=== PATIENT | male | born 1990 | race Hispanic/Latino ===

== ENCOUNTER 2017-10-20 20:20 | Emergency (ER) | payer SELFPAY ==
[2017-10-20 22:03] LABS: Bilirubin Negative (Negative); Blood, Urine Negative (Negative); Clarity CLEAR (Clear); Glucose, Urine (Dipstick) Negative (Negative); Leukocyte Negative (Negative); Nitrite Negative (Negative); Protein, Urine (Dipstick) Negative (Neg-Trace); Specific Gravity, Urine 1.006 (1.002-1.036); Urobilinogen 0.2 mg/dL (0.2-1.0)
[2017-10-20 22:07] LABS: Bacteria/HPF None Seen HPF (None Seen); Hyaline Casts/LPF 0-3 HYALINE CAST LPF (0-3 Hyaline); RBC/HPF 0-3 HPF (0-3); Squamous Epithelial 0-3 HPF (0-3); WBC/HPF 0-3 HPF (0-3)
[2017-10-20] MEDS ORDERED: cefTRIAXone\\ROCEPHIN 250 MG VIAL ONE (23:06)
[2017-10-20] MEDS ORDERED: Lidocaine 1% (PF) 30 ML VIAL ONE (23:07)
[2017-10-20] MEDS ORDERED: Azithromycin 250 MG TAB ONE (23:30)
[2017-10-22 22:46] LABS: Chlamydia by PCR Not Detected (NotDetected); GC by PCR Not Detected (NotDetected)
== END 2017-10-20 23:39 | disposition home or self-care (01) ==
LOC: ERS 20:20
DX: N34.2 Other urethritis (principal); F17.210 Nicotine dependence, cigarettes, uncomplicated
CPT/HCPCS: 81001; 87491; 87591; 96372; J0696; J2001